=== PATIENT | female | born 1945 | race Two or more races ===

== ENCOUNTER → 2022-09-08 | Outpatient (CLI) | payer BC ==
[2022-09-08 11:38] LABS: Basophils # (auto) 0 10 ^3/uL (0-0.2); Basophils % (auto) 0.5 % (0.0-2.0); Eosinophils # (auto) 0 10 ^3/uL (0-0.8); Eosinophils % (auto) 0.7 % (0.0-7.0); Hematocrit 40.6 % (36.0-46.0); Hemoglobin 13.8 g/dL (12.2-16.2); Lymphocytes # (auto) 1.6 10 ^3/uL (0.4-5.4); Lymphocytes % (auto) 22.9 % (10.0-50.0); Mean Corpuscular Hemoglobin 29.4 pg (28.0-32.0); Mean Corpuscular Volume 86.5 fL (80.0-100.0); Monocytes # (auto) 0.7 10 ^3/uL (0-1.3); Monocytes % (auto) 9.9 % (0.0-12.0); Neutrophils # (auto) 4.5 10 ^3/uL (1.6-8.6); Red Blood Cells 4.69 10^6/uL (4.0-5.20); Red Cell Distribution Width 15.3 % (11.8-14.3); White Blood Cell 6.8 10^3/uL (4.4-10.8)
[2022-09-08 12:40] LABS: Potassium 4.4 mmol/L (3.5-5.1)
[2022-09-08 12:55] LABS: Albumin 3.9 g/dL (3.4-5.0); BUN/Creatinine Ratio 11.3; Bilirubin, Total 0.8 mg/dL (0.2-1.0); Calcium 9.4 mg/dL (8.5-10.1); Total Protein 6.5 g/dL (6.4-8.2)
[2022-09-08 16:22] LABS: Urine Bacteria NONE SEEN /hpf (None Seen); Urine Blood TRACE /uL (Negative); Urine Hyaline Cast MOD /lpf (0 - 2); Urine Mucus FEW (None Seen); Urine Specific Gravity 1.016 (1.001-1.035); Urine WBC 18 /hpf (0 - 5)
== END | disposition home or self-care (01) ==
LOC: LAB 10:51
PROVIDERS: ATTEND Internal Medicine
DX: E11.9 Type 2 diabetes mellitus without complications (principal); I10 Essential (primary) hypertension; E78.5 Hyperlipidemia, unspecified; J44.9 Chronic obstructive pulmonary disease, unspecified
CPT/HCPCS: 36415; 80053; 80061; 81001; 82043; 83036; 85025

== ENCOUNTER → 2022-10-28 | Outpatient (CLI) | payer BC ==
[2022-10-28 11:22] LABS: BUN/Creatinine Ratio 12.9; Calcium 9.1 mg/dL (8.5-10.1); Potassium 3.8 mmol/L (3.5-5.1)
== END | disposition home or self-care (01) ==
LOC: LAB 10:21
PROVIDERS: ATTEND Internal Medicine
DX: Z12.11 Encounter for screening for malignant neoplasm of colon (principal); E11.9 Type 2 diabetes mellitus without complications
CPT/HCPCS: 36415; 80048

== ENCOUNTER → 2022-12-08 | Outpatient (CLI) | payer BC ==
[2022-12-08 12:09] LABS: BUN/Creatinine Ratio 17.7 (10.0-20.0); Calcium 8.9 mg/dL (8.5-10.1); Potassium 4.1 mmol/L (3.5-5.1)
== END | disposition home or self-care (01) ==
LOC: LAB 11:07
PROVIDERS: ATTEND Internal Medicine
DX: R73.03 Prediabetes (principal)
CPT/HCPCS: 36415; 80048

== ENCOUNTER → 2022-12-30 | Outpatient (CLI) | payer BC ==
[2022-12-30 11:09] LABS: Urine Bacteria NONE SEEN /hpf (None Seen); Urine Blood Negative /uL (Negative); Urine Hyaline Cast FEW /lpf (0 - 2); Urine Mucus FEW (None Seen); Urine Specific Gravity 1.025 (1.001-1.035); Urine WBC 4 /hpf (0 - 5)
[2022-12-30 11:26] LABS: Calcium 8.8 mg/dL (8.5-10.1); Potassium 4.1 mmol/L (3.5-5.1)
[2022-12-30 11:29] LABS: BUN/Creatinine Ratio 23.6 (10.0-20.0); Uric Acid 6.1 mg/dL (2.6-6.0)
== END | disposition home or self-care (01) ==
LOC: LAB 10:18
PROVIDERS: ATTEND Internal Medicine
DX: R73.03 Prediabetes (principal); R13.10 Dysphagia, unspecified; E87.1 Hypo-osmolality and hyponatremia
CPT/HCPCS: 36415; 80048; 81001; 84550

== ENCOUNTER → 2023-01-13 | Outpatient (CLI) | payer BC | END | disposition home or self-care (01) | LOC: XYW 10:42 | DX: I08.8 Other rheumatic multiple valve diseases (principal); I48.91 Unspecified atrial fibrillation; I27.20 Pulmonary hypertension, unspecified | CPT/HCPCS: 93306 ==

== ENCOUNTER 2023-02-13 10:52 | Emergency (ER) | payer BC ==
[~2023-02-13] VITALS: Ht 172.7 cm; Wt 76.8 kg
[2023-02-13 13:04] VITALS: BP 110/59
[2023-02-13] MEDS ORDERED: CEPH500C PO (13:13)
== END 2023-02-13 13:15 | disposition home or self-care (01) ==
LOC: ER 10:52
DX: S51.812A Laceration without foreign body of left forearm, initial encounter (principal); J45.909 Unspecified asthma, uncomplicated; E11.9 Type 2 diabetes mellitus without complications; I48.91 Unspecified atrial fibrillation; Z88.2 Allergy status to sulfonamides; W22.8XXA Striking against or struck by other objects, initial encounter; Y93.89 Activity, other specified; Y92.89 Other specified places as the place of occurrence of the external cause; Y99.8 Other external cause status
CPT/HCPCS: 82962

== ENCOUNTER 2023-04-08 07:53 | Inpatient (IN) | payer BC ==
[2023-04-07 11:14] LABS: Basophils # (auto) 0.1 10 ^3/uL (0-0.2); Basophils % (auto) 1.2 % (0.0-2.0); Eosinophils # (auto) 0 10 ^3/uL (0-0.8); Eosinophils % (auto) 0.2 % (0.0-7.0); Hematocrit 40.4 % (36.0-46.0); Hemoglobin 13.2 g/dL (12.2-16.2); Lymphocytes # (auto) 1.2 10 ^3/uL (0.4-5.4); Lymphocytes % (auto) 17.3 % (10.0-50.0); Mean Corpuscular Hemoglobin 28.8 pg (28.0-32.0); Mean Corpuscular Hgb Conc. 32.7 g/dL (32.0-36.0); Mean Corpuscular Volume 88.1 fL (80.0-100.0); Monocytes # (auto) 0.6 10 ^3/uL (0-1.3); Monocytes % (auto) 8.7 % (0.0-12.0); Neutrophils # (auto) 5.2 10 ^3/uL (1.6-8.6); Neutrophils % (auto) 72.6 % (37.0-80.0); Red Blood Cells 4.59 10^6/uL (4.0-5.20); Red Cell Distribution Width 14.3 % (11.8-14.3); White Blood Cell 7.2 10^3/uL (4.4-10.8)
[2023-04-07 11:55] LABS: INR 1.06 (0.9-1.15); Prothrombin Time 11.1 sec (9.3-11.8)
[2023-04-07 12:26] LABS: Potassium 3.8 mmol/L (3.5-5.1)
[2023-04-07 12:42] LABS: BUN/Creatinine Ratio 16.7 (10.0-20.0); Bilirubin, Total 0.5 mg/dL (0.2-1.0); Calcium 9.3 mg/dL (8.5-10.1); Total Protein 7.1 g/dL (6.4-8.2)
[2023-04-08] VITALS (14 sets, daily range): BP systolic 116–158; BP diastolic 55–89; PULSE 64–76; RESP 14–20; TEMP 98–98.5; O2SAT 92–100
[~2023-04-08] VITALS: Ht 172.7 cm; Wt 74.8 kg
[~2023-04-08 07:53] MED LIST: ALBU108A5 IN; APIX5TAB PO; DONE5TAB80 PO; EZET10TA22 PO; FEXO-140 PO; FURO20TA3 PO; HYDR25TA4 PO; HYDR25TA87 PO; MEMA1TAB5 PO; METH-1182 PO; METO1TAB9 PO; NITR0.4S29 SL; PREG-109 PO; RAMI10CA38 PO; SITA100T7 PO; TRAZ-227 PO; VENL150T19 PO
[2023-04-08] MEDS ORDERED: VANCOMYCIN 1GM/250ML 250 ML IV ONE (08:45)
[2023-04-08] MEDS ORDERED: SODIUM CHLORIDE 0.9% 1,000 ML IV ONE (11:30)
[2023-04-08] MEDS ORDERED: traZODone HCL 50 MG TAB PO PRN (12:15)
[2023-04-08] MEDS ORDERED: NITROGLYCERIN 0.4 MG SL TAB SL PRN (12:15)
[2023-04-08] MEDS ORDERED: MORPHINE SULFATE INJ 2 MG/ml SYRG IV PRN (12:15)
[2023-04-08] MEDS ORDERED: hydrALAZINE HCL 25 MG TAB PO PRN (12:15)
[2023-04-08] MEDS ORDERED: FUROSEMIDE 20 MG TAB PO PRN (12:15)
[2023-04-08] MEDS ORDERED: HYDROcodone-ACET 5/325MG TAB PO PRN (12:15)
[2023-04-08] MEDS ORDERED: ALBUTEROL SULF 2.5 MG/0.5ML(0.5%) NEB SOLN NEB PRN (13:15)
[2023-04-08] MEDS ORDERED: LORATADINE 10 MG TAB PO PRN (13:30)
[2023-04-08] MEDS ORDERED: DEXTROSE (50%) 50ML SYRG IV PRN (15:15)
[2023-04-08] MEDS ORDERED: ACETAMINOPHEN 500 MG TAB PO ONE (15:28)
[2023-04-08] MEDS ORDERED: ACETAMINOPHEN 325 MG TAB PO ONE (15:30)
[2023-04-08] MEDS: ACETAMINOPHEN 325 MG TAB PO PRN (15:34)
[2023-04-08] MEDS: InsuLIN REG 1unit/0.01ml Soln (100units/ml) SC SCH ×2 (19:05→21:12)
[2023-04-08] MEDS: ACCU-CHEK COMFORT CURVE STRIP VI SCH ×2 (19:06→21:12)
[2023-04-08] MEDS: DONEPEZIL HYDROCHLORIDE 5 MG TAB PO SCH (19:06)
[2023-04-08] MEDS: PREGABALIN CAPSULE 75 MG CAP PO SCH (21:08)
[2023-04-08] MEDS: MEMANTINE HCL 5 MG TAB PO SCH (21:09)
[2023-04-09 04:58] VITALS: BP 141/78; PULSE 68; RESP 20; TEMP 98.3; O2SAT 93
[2023-04-09 06:24] LABS: Basophils # (auto) 0 10 ^3/uL (0-0.2); Basophils % (auto) 0.4 % (0.0-2.0); Eosinophils # (auto) 0.1 10 ^3/uL (0-0.8); Eosinophils % (auto) 0.7 % (0.0-7.0); Hematocrit 39.8 % (36.0-46.0); Hemoglobin 13.2 g/dL (12.2-16.2); Lymphocytes # (auto) 1.8 10 ^3/uL (0.4-5.4); Lymphocytes % (auto) 20.5 % (10.0-50.0); Mean Corpuscular Hemoglobin 29.1 pg (28.0-32.0); Mean Corpuscular Hgb Conc. 33.1 g/dL (32.0-36.0); Mean Corpuscular Volume 87.7 fL (80.0-100.0); Monocytes # (auto) 0.9 10 ^3/uL (0-1.3); Monocytes % (auto) 10.7 % (0.0-12.0); Neutrophils # (auto) 5.8 10 ^3/uL (1.6-8.6); Neutrophils % (auto) 67.7 % (37.0-80.0); Red Blood Cells 4.54 10^6/uL (4.0-5.20); Red Cell Distribution Width 14.3 % (11.8-14.3); White Blood Cell 8.5 10^3/uL (4.4-10.8)
[2023-04-09 06:28] LABS: BUN/Creatinine Ratio 22.4 (10.0-20.0); Calcium 8.8 mg/dL (8.5-10.1); Potassium 3.3 mmol/L (3.5-5.1)
[2023-04-09] MEDS: ACCU-CHEK COMFORT CURVE STRIP VI SCH ×3 (06:41→17:21)
[2023-04-09] MEDS: InsuLIN REG 1unit/0.01ml Soln (100units/ml) SC SCH ×3 (06:41→17:00)
[2023-04-09 08:00] VITALS: BP 137/74; PULSE 65; PULSE 75; RESP 18; TEMP 97.7; O2SAT 96; O2SAT 97
[2023-04-09 09:00] VITALS: BP 137/74; PULSE 75; RESP 18; TEMP 97.7; O2SAT 96
[2023-04-09] MEDS: PREGABALIN CAPSULE 75 MG CAP PO SCH (09:04)
[2023-04-09] MEDS: MEMANTINE HCL 5 MG TAB PO SCH (09:04)
[2023-04-09] MEDS ORDERED: RAMIPRIL 10 MG CAP PO SCH (10:00)
[2023-04-09] MEDS ORDERED: HCTZ 25 MG TAB PO SCH (10:00)
[2023-04-09] MEDS ORDERED: METOPROLOL SUCCINATE XL 50 MG TAB PO SCH (10:00)
[2023-04-09 13:00] VITALS: BP 122/86; PULSE 74; RESP 18; TEMP 98.4; O2SAT 97
[2023-04-09] MEDS ORDERED: POTASSIUM CHL 20 Meq TABLET PO ONE (16:45)
[2023-04-09] MEDS: DONEPEZIL HYDROCHLORIDE 5 MG TAB PO SCH (17:13)
[2023-04-09] MEDS: ACETAMINOPHEN 325 MG TAB PO PRN (18:32)
[2023-04-09 18:44] VITALS: BP 122/86; PULSE 74; RESP 18; TEMP 98.4; O2SAT 97
== END 2023-04-09 20:00 | disposition home or self-care (01) | DRG 244 ==
LOC: CATH 07:53 → TELE 12:21 → TELE-WESTW 15:47
PROVIDERS: ADMIT Internal Medicine; ATTEND Internal Medicine
PROC: 0JH604Z Insertion of Pacemaker, Single Chamber into Chest Subcutaneous Tissue and Fascia, Open Approach (ICD-10-PCS; principal; 2023-04-08)
PROC: 02HK3JZ Insertion of Pacemaker Lead into Right Ventricle, Percutaneous Approach (ICD-10-PCS; 2023-04-08)
DX: I49.5 Sick sinus syndrome (principal); I10 Essential (primary) hypertension; I48.91 Unspecified atrial fibrillation; I25.10 Atherosclerotic heart disease of native coronary artery without angina pectoris; E11.9 Type 2 diabetes mellitus without complications; E87.6 Hypokalemia; E78.5 Hyperlipidemia, unspecified; Z87.891 Personal history of nicotine dependence; Z88.2 Allergy status to sulfonamides
CPT/HCPCS: 33207; 36415; 71045; 80048; 80053; 82962; 85025; 85610; 85730; 93005; 99152; 99153; G0378; J1815

== ENCOUNTER → 2023-04-16 | Outpatient (CLI) | payer BC ==
[2023-04-16 11:19] LABS: Cholesterol 135 mg/dL (< 200); HDL Cholesterol 58 mg/dL (40-59); LDL Cholesterol 80 mg/dL (< 100); Triglycerides 45 mg/dL (< 150)
[2023-04-16 11:49] LABS: Micro Albumin 7.16 mg/L (0-30.0)
== END | disposition home or self-care (01) ==
LOC: LAB 10:25
PROVIDERS: ATTEND Internal Medicine
DX: R73.03 Prediabetes (principal)
CPT/HCPCS: 36415; 80061; 82043; 82570; 83036

== ENCOUNTER 2023-06-09 17:53 | Emergency (ER) | payer BC ==
[~2023-06-09] VITALS: Ht 172.7 cm; Wt 74.6 kg
[2023-06-09 22:01] LABS: Basophils # (auto) 0.1 10 ^3/uL (0-0.2); Basophils % (auto) 0.8 % (0.0-2.0); Eosinophils # (auto) 0.1 10 ^3/uL (0-0.8); Eosinophils % (auto) 1.4 % (0.0-7.0); Hematocrit 37.7 % (36.0-46.0); Hemoglobin 12.5 g/dL (12.2-16.2); Lymphocytes # (auto) 2.4 10 ^3/uL (0.4-5.4); Lymphocytes % (auto) 31.7 % (10.0-50.0); Mean Corpuscular Hemoglobin 28.9 pg (28.0-32.0); Mean Corpuscular Hgb Conc. 33.2 g/dL (32.0-36.0); Mean Corpuscular Volume 86.9 fL (80.0-100.0); Monocytes # (auto) 0.6 10 ^3/uL (0-1.3); Monocytes % (auto) 8.4 % (0.0-12.0); Neutrophils # (auto) 4.4 10 ^3/uL (1.6-8.6); Neutrophils % (auto) 57.7 % (37.0-80.0); Red Blood Cells 4.35 10^6/uL (4.0-5.20); Red Cell Distribution Width 15.6 % (11.8-14.3); White Blood Cell 7.6 10^3/uL (4.4-10.8)
[2023-06-09 22:19] LABS: Alanine Aminotransferase 31 U/L (7-40); Albumin 3.9 g/dL (3.2-4.8); Alkaline Phosphatase 73 U/L (46-116); Anion Gap 4 (5-15); Aspartate Aminotransferase 25 U/L (13-40); BUN/Creatinine Ratio 12.5 (10.0-20.0); Bilirubin, Total 0.4 mg/dL (0.2-1.0); Blood Urea Nitrogen 8 mg/dL (9-23); Calcium 9.5 mg/dL (8.5-10.1); Carbon Dioxide 32 mmol/L (20-30); Chloride 101 mmol/L (98-107); Glucose 97 mg/dL (74-106); Sodium 137 mmol/L (136-145)
[2023-06-09 22:20] LABS: Total Protein 6.2 g/dL (5.7-8.2)
[2023-06-09 22:50] VITALS: BP 135/73; PULSE 66; RESP 18; O2SAT 97
== END 2023-06-09 22:52 | disposition home or self-care (01) ==
LOC: ER 17:53
DX: M54.16 Radiculopathy, lumbar region (principal); J45.909 Unspecified asthma, uncomplicated; E11.9 Type 2 diabetes mellitus without complications; Z88.2 Allergy status to sulfonamides; Z88.8 Allergy status to other drugs, medicaments and biological substances; Z79.899 Other long term (current) drug therapy
CPT/HCPCS: 36415; 80053; 85025; 93971

== ENCOUNTER → 2023-06-16 | Outpatient (CLI) | payer BC | END | disposition home or self-care (01) | LOC: LAB 09:51 | PROVIDERS: ATTEND Internal Medicine | DX: M79.605 Pain in left leg (principal) | CPT/HCPCS: 36415; 82550 ==

== ENCOUNTER 2023-09-30 08:20 | Day surgery (SDC) | payer BC ==
[2023-09-25 14:38] LABS: Basophils # (auto) 0 10 ^3/uL (0-0.2); Basophils % (auto) 0.5 % (0.0-2.0); Eosinophils # (auto) 0.1 10 ^3/uL (0-0.8); Eosinophils % (auto) 0.7 % (0.0-7.0); Hematocrit 40.1 % (36.0-46.0); Hemoglobin 13.3 g/dL (12.2-16.2); Lymphocytes # (auto) 1.9 10 ^3/uL (0.4-5.4); Lymphocytes % (auto) 25.6 % (10.0-50.0); Mean Corpuscular Hemoglobin 29.5 pg (28.0-32.0); Mean Corpuscular Hgb Conc. 33.1 g/dL (32.0-36.0); Mean Corpuscular Volume 89.2 fL (80.0-100.0); Monocytes # (auto) 0.6 10 ^3/uL (0-1.3); Monocytes % (auto) 7.5 % (0.0-12.0); Neutrophils # (auto) 4.9 10 ^3/uL (1.6-8.6); Neutrophils % (auto) 65.7 % (37.0-80.0); Red Cell Distribution Width 14.6 % (11.8-14.3); White Blood Cell 7.5 10^3/uL (4.4-10.8)
[2023-09-25 15:00] LABS: INR 1.05 (0.9-1.15); Partial Thromboplastin Time 28.8 SEC (24.5-34.5)
[2023-09-25 15:05] LABS: Urine Bacteria FEW /hpf (None Seen); Urine Blood Negative /uL (Negative); Urine Clarity Clear (Clear); Urine Color Yellow (Yellow); Urine Protein, UAD Negative (Negative); Urine Specific Gravity 1.018 (1.001-1.035); Urine Urobilinogen Normal (Negative); Urine WBC 2 /hpf (0 - 5); Urine pH 6.5 (5.0-8.0)
[2023-09-25 15:37] LABS: Alanine Aminotransferase 26 U/L (7-40); Albumin 4.3 g/dL (3.2-4.8); Alkaline Phosphatase 87 U/L (46-116); Anion Gap 4 (5-15); Aspartate Aminotransferase 20 U/L (13-40); BUN/Creatinine Ratio 17.3 (10.0-20.0); Bilirubin, Total 0.5 mg/dL (0.2-1.0); Blood Urea Nitrogen 13 mg/dL (9-23); Calcium 9.7 mg/dL (8.5-10.1); Carbon Dioxide 32 mmol/L (20-30); Chloride 103 mmol/L (98-107); Glucose 163 mg/dL (74-106); Potassium 4.3 mmol/L (3.5-5.1); Sodium 139 mmol/L (136-145)
[2023-09-25 15:38] LABS: Total Protein 6.6 g/dL (5.7-8.2)
[~2023-09-30] VITALS: Ht 172.7 cm; Wt 73.5 kg
[~2023-09-30 08:20] MED LIST changes: +AMLO1TAB23 PO; +DONE1TAB88 PO; -DONE5TAB80 PO; -FEXO-140 PO; -FURO20TA3 PO; -HYDR25TA4 PO; -HYDR25TA87 PO; +RAM10T PO; -RAMI10CA38 PO
[2023-09-30] MEDS ORDERED: GLYCOPYRROLATE 0.2 MG/ML 1ML VIAL ONE (09:33)
[2023-09-30] MEDS ORDERED: PROPOFOL 10 MG/ML 20 ML IV ONE (09:33)
[2023-09-30] MEDS ORDERED: ONDANSETRON HCL 4 MG/2 ML VIAL ONE (09:33)
[2023-09-30] MEDS ORDERED: KETAMINE 50mg/ML 1ml syringe ONE (09:33)
[2023-09-30] MEDS ORDERED: MIDAZOLAM HCL 2MG/2ML 2ml VIAL (1mg/ml) ONE (09:33)
[2023-09-30 10:10] VITALS: PULSE 82; RESP 10; TEMP 98.2; O2SAT 98
[2023-09-30 10:45] VITALS: BP 109/58; PULSE 71; RESP 15; O2SAT 95
== END 2023-09-30 11:00 | disposition home or self-care (01) ==
LOC: GI 08:20
PROVIDERS: ATTEND Internal Medicine Gastroenterology
DX: R13.10 Dysphagia, unspecified (principal); K44.9 Diaphragmatic hernia without obstruction or gangrene; K20.90 Esophagitis, unspecified without bleeding; K29.50 Unspecified chronic gastritis without bleeding; I25.10 Atherosclerotic heart disease of native coronary artery without angina pectoris; Z95.0 Presence of cardiac pacemaker
CPT/HCPCS: 36415; 43239; 80053; 81001; 82962; 85025; 85610; 85730; J2250; J2405; J2704; J7030

== ENCOUNTER → 2023-10-28 | Outpatient (CLI) | payer BC ==
[2023-10-29 08:06] LABS: RPR Non Reactive (Non Reactive)
== END | disposition home or self-care (01) ==
LOC: LAB 10:11
PROVIDERS: ATTEND Internal Medicine
DX: R73.03 Prediabetes (principal); G31.84 Mild cognitive impairment of uncertain or unknown etiology
CPT/HCPCS: 36415; 82306; 84443; 84550; 86592

== ENCOUNTER → 2023-12-31 | Outpatient (CLI) | payer BC ==
[~2023-12-31] MED LIST changes: -PREG-109 PO; +PREG75CA90 PO; -VENL150T19 PO; +VENL150T34 PO
[2024-01-01 16:46] LABS: Creatinine, Urine 86.33 mg/dL (30.0-125.0)
== END | disposition home or self-care (01) ==
LOC: LAB 08:45
PROVIDERS: ATTEND Internal Medicine
DX: R73.03 Prediabetes (principal)
CPT/HCPCS: 36415; 82043; 82570; 83036

== ENCOUNTER → 2024-01-04 | Outpatient (CLI) | payer BC | END | disposition home or self-care (01) | LOC: XYW 12:39 | PROVIDERS: ATTEND Student in an Organized Health Care Education/Training Program | DX: I08.1 Rheumatic disorders of both mitral and tricuspid valves (principal); I50.9 Heart failure, unspecified; Z95.0 Presence of cardiac pacemaker | CPT/HCPCS: 93306 ==

== ENCOUNTER → 2024-02-02 | Outpatient (CLI) | payer BC ==
[2024-02-02 11:56] LABS: Triglycerides 54 mg/dL (< 150)
[2024-02-02 11:57] LABS: LDL Cholesterol 118 mg/dL (< 100)
[2024-02-02 11:58] LABS: Cholesterol 182 mg/dL (< 200); HDL Cholesterol 57 mg/dL (40-59)
== END | disposition home or self-care (01) ==
LOC: LAB 11:07
PROVIDERS: ATTEND Internal Medicine
DX: E78.5 Hyperlipidemia, unspecified (principal)
CPT/HCPCS: 36415; 80061

== ENCOUNTER → 2024-05-26 | Outpatient (CLI) | payer BC ==
[2024-05-26 12:43] LABS: Basophils # (auto) 0 10 ^3/uL (0-0.2); Basophils % (auto) 0.6 % (0.0-2.0); Eosinophils # (auto) 0.1 10 ^3/uL (0-0.8); Eosinophils % (auto) 0.8 % (0.0-7.0); Hematocrit 39.6 % (36.0-46.0); Hemoglobin 13.3 g/dL (12.2-16.2); Lymphocytes # (auto) 1.5 10 ^3/uL (0.4-5.4); Lymphocytes % (auto) 19.9 % (10.0-50.0); Mean Corpuscular Hemoglobin 29.4 pg (28.0-32.0); Mean Corpuscular Hgb Conc. 33.7 g/dL (32.0-36.0); Mean Corpuscular Volume 87.4 fL (80.0-100.0); Monocytes # (auto) 0.6 10 ^3/uL (0-1.3); Monocytes % (auto) 8.5 % (0.0-12.0); Neutrophils # (auto) 5.2 10 ^3/uL (1.6-8.6); Neutrophils % (auto) 70.2 % (37.0-80.0); Platelet Count (auto) 190 10^3/uL (140-450); Red Blood Cells 4.53 10^6/uL (4.0-5.20); Red Cell Distribution Width 15.7 % (11.8-14.3); White Blood Cell 7.4 10^3/uL (4.4-10.8)
[2024-05-26 13:47] LABS: Alanine Aminotransferase 12 U/L (7-40); Albumin 4.5 g/dL (3.2-4.8); Alkaline Phosphatase 63 U/L (46-116); Anion Gap 7 (5-15); Aspartate Aminotransferase 13 U/L (13-40); BUN/Creatinine Ratio 20.3 (10.0-20.0); Blood Urea Nitrogen 13 mg/dL (9-23); Calcium 10.2 mg/dL (8.7-10.4); Carbon Dioxide 29 mmol/L (20-31); Chloride 106 mmol/L (98-107); Glucose 120 mg/dL (74-106); LDL Cholesterol 89 mg/dL (< 100); Sodium 142 mmol/L (136-145); Triglycerides 66 mg/dL (< 150)
[2024-05-26 13:48] LABS: Bilirubin, Total 0.8 mg/dL (0.2-1.0); Cholesterol 154 mg/dL (< 200); HDL Cholesterol 60 mg/dL (40-59); Total Protein 6.9 g/dL (5.7-8.2)
== END | disposition home or self-care (01) ==
LOC: LAB 12:19
PROVIDERS: ATTEND Internal Medicine
DX: M54.50 Low back pain, unspecified (principal); R73.03 Prediabetes
CPT/HCPCS: 36415; 80053; 80061; 83036; 85025

== ENCOUNTER → 2024-08-08 | Outpatient (CLI) | payer BC ==
[2024-08-08 12:21] LABS: Basophils # (auto) 0 10 ^3/uL (0-0.2); Basophils % (auto) 0.5 % (0.0-2.0); Eosinophils # (auto) 0.1 10 ^3/uL (0-0.8); Eosinophils % (auto) 1.7 % (0.0-7.0); Hematocrit 39.6 % (36.0-46.0); Hemoglobin 13.1 g/dL (12.2-16.2); Lymphocytes # (auto) 1.7 10 ^3/uL (0.4-5.4); Mean Corpuscular Volume 87.9 fL (80.0-100.0); Monocytes # (auto) 0.7 10 ^3/uL (0-1.3); Monocytes % (auto) 10.3 % (0.0-12.0); Neutrophils # (auto) 4.3 10 ^3/uL (1.6-8.6); Neutrophils % (auto) 62.5 % (37.0-80.0); Platelet Count (auto) 176 10^3/uL (140-450); Red Blood Cells 4.51 10^6/uL (4.0-5.20); Red Cell Distribution Width 15.1 % (11.8-14.3); White Blood Cell 6.8 10^3/uL (4.4-10.8)
[2024-08-08 13:21] LABS: Alanine Aminotransferase 12 U/L (7-40); Alkaline Phosphatase 77 U/L (46-116); Anion Gap 4 (5-15); Aspartate Aminotransferase 15 U/L (13-40); BUN/Creatinine Ratio 26.3 (10.0-20.0); Blood Urea Nitrogen 20 mg/dL (9-23); Calcium 10.1 mg/dL (8.7-10.4); Carbon Dioxide 31 mmol/L (20-31); Chloride 105 mmol/L (98-107); Glucose 101 mg/dL (74-106); Potassium 4.3 mmol/L (3.5-5.1); Sodium 140 mmol/L (136-145)
[2024-08-08 13:22] LABS: Albumin 4.3 g/dL (3.2-4.8); Bilirubin, Total 0.3 mg/dL (0.2-1.0); Total Protein 6.8 g/dL (5.7-8.2)
== END | disposition home or self-care (01) ==
LOC: LAB 11:58
DX: G30.1 Alzheimer's disease with late onset (principal); F02.818 Dementia in other diseases classified elsewhere, unspecified severity, with other behavioral disturbance
CPT/HCPCS: 36415; 80053; 82607; 84425; 85025

== ENCOUNTER → 2024-08-29 | Outpatient (CLI) | payer BC ==
[~2024-08-29] MED LIST changes: +BACDST PO
== END | disposition home or self-care (01) ==
LOC: LAB 05:44
PROVIDERS: ATTEND Nurse Practitioner
DX: N39.0 Urinary tract infection, site not specified (principal)
CPT/HCPCS: 87086

== ENCOUNTER 2024-08-30 04:35 | Emergency (ER) | payer BC ==
[~2024-08-30] VITALS: Ht 172.7 cm; Wt 78.4 kg
[~2024-08-30 04:35] MED LIST changes: -BACDST PO
--- NOTE | 2024-08-30 04:58 | ED.PDOC ---
General HPI Comments 78-year-old female presents with a chief complaint of urinary retention, hematuria, frequency, urgency, and flank pain. Patient states that her pain is localized to her right flank, non-radiating, and rates her pain a 3/10. Patient mentions that the hematuria has been going on for about x 2 weeks and had seen her PMD who did a urine culture, but has not gotten the results. Patient is unsure if she has a current UTI. No other symptoms or modifying factors present at this time. Chief Complaint: Urinary Time Seen by MD: 04:51 Primary Care Provider: CHIQUITA Reviewed notes: Medications, Allergies Allergies: Coded Allergies: Statins (Verified Allergy, Mild, itching, 04/07/23) Sulfa Antibiotics (Verified Allergy, Unknown, 02/13/23) Trimethoprim (Unverified Allergy, Unknown, 04/09/23) Home Meds Active Scripts Sulfamethoxazole W/Trimethopri (Bactrim Ds Tablet) 1 Tab Tb, 1 TAB PO BID for 7 Days, #14 TAB Prov:RUPERT LAMAS MD 08/30/24 Reported Medications Amlodipine Besylate (Amlodipine Besylate) 10 Mg Tab, 10 MG PO DAILY, TAB 09/25/23 Ramipril (Altace) 10 Mg Cp, 10 MG PO BID, CAP 09/25/23 Donepezil Hydrochloride (DONEPEZIL HCL) 10 Mg Tab, 10 MG PO QPM, TAB 09/25/23 Venlafaxine Hcl (Venlafaxine Hcl Er) 150 Mg Tab, 1 TAB PO DAILY for depression 04/07/23 Trazodone Hcl (Trazodone Hcl) 50 Mg Tab, 50 MG PO HSPRN PRN for SLEEP, MG 04/07/23 Pregabalin (Pregabalin) 75 Mg Cap, 75 MG PO BID for NEUROPATHY, CAP 04/07/23 Nitroglycerin (Nitrostat) 0.4 Mg Sub, 0.4 MG SL PRN for CHEST PAIN, INJ 04/07/23 Metoprolol Succinate (Metoprolol Succinate Er) 100 Mg Tab, 100 MG PO DAILY for HEART/HTN, TAB 04/07/23 Methocarbamol (Methocarbamol) 750 Mg Tab, 750 MG PO BID PRN for BACK PAIN 04/07/23 Memantine Hydrochloride (Memantine HCl) 10 Mg Tab, 10 MG PO BID for MEMORY, TAB 04/07/23 Sitagliptin Phosphate (Januvia) 100 Mg Tab, 1 TAB PO DAILY for DM 04/07/23 Ezetimibe (Zetia) 10 Mg Tab, 1 TAB PO DAILY for CHOLESTEROL 04/07/23 Apixaban Base (ELIQUIS) 5 Mg Tab, 5 MG PO BID for BLOOD THINNER (A-FIB), TAB 04/07/23 Albuterol Sulfate (Albuterol Sulfate Hfa) 108 Mcg/Act Aer, 90 MCG IN Q6HP PRN for SHORTNESS OF BREATH, AER 04/07/23 Information Source: Patient Mode of Arrival: Ambulatory Severity: Moderate Inability to void: Moderate Timing: Days Duration: Since onset Has not urinated for: Minutes Prehospital treatment: None Onset: Spontaneous Symptoms: Frequency, Urgency, Hematuria, Inability to void History of: UTI Location: (R) Flank associated signs and symptoms: Frequency, Urgency, Hematuria, Inability to Void Past Medical History PAST MEDICAL HISTORY: AFIB, Asthma, Dementia, DM Surgical History: Denies all surgeries 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 Family History Family History: Reviewed,noncontributory to illness Social History Smoker: Non-Smoker Alcohol: Denies ETOH Use Drugs: Denies Drug Use Lives In: Home Constitutional: denies: chills, diaphoresis, fatigue, fever, malaise, sweats, weakness, others EENTM: denies: blurred vision, double vision, ear bleeding, ear discharge, ear drainage, ear pain, ear ringing, eye pain, eye redness, hearing loss, mouth pain, mouth swelling, nasal discharge, nose bleeding, nose congestion, nose pain, photophobia, tearing, throat pain, throat swelling, voice changes, others Respiratory: denies: cough, hemoptysis, orthopnea, SOB at rest, shortness of breath, SOB with excertion, stridor, wheezing, others Cardiovascular: denies: chest pain, dizzy spells, diaphoresis, Dyspnea on exertion, edema, irregular heart beat, left arm pain, lightheadedness, palpitations, PND, syncope, others Gastrointestinal: denies: abdomen distended, abdominal pain, blood streaked bowels, constipated, diarrhea, dysphagia, difficulty swallowing, hematemesis, melena, nausea, poor appetite, poor fluid intake, rectal bleeding, rectal pain, vomiting, others Genitourinary: reports: flank pain, frequency, hematuria, urgency, others (RETENTION); denies: abnormal vagina bleeding, burning, dyspareunia, dysuria, incontinence, pain, , vagina discharge Neurological: denies: dizziness, fainting, headache, left sided numbness, left sided weakness, numbness, paresthesia, pre-existing deficit, right sided numbness, right sided weakness, seizure, speech problems, tingling, tremors, weakness, others Musculoskeletal: denies: back pain, gout, joint pain, joint swelling, muscle pain, muscle stiffness, neck pain, others Integumetry: denies: bruises, change in color, change in hair/nails, dryness, laceration, lesions, lumps, rash, wounds, others Allergic/Immunocompromised: denies: Difficulty Healing, Frequent Infections, Hives, Itching, others Hematologic/Lymphatic: denies: anemia, blood clots, easy bleeding, easy bruising, swollen glands, others Endocrine: denies: excessive hunger, excessive sweating, excessive thirst, excessive urination, flushing, intolerance to cold, intolerance to heat, unexplained weight gain, unexplained weight loss, others Psychiatric: denies: anxiety, bipolar disorder, depression, hopeless, panic disorder, schizophrenia, sleepless, suicidal, others All Other Systems: Reviewed and Negative Physical Exam General Appearance: No Apparent Distress, Normal HEENT: Normal ENT Inspection, Pharynx Normal, TMs Normal Neck: Full Range of Motion, Non-Tender, Normal, Normal Inspection Respiratory: Chest Non-Tender, Lungs Clear, No Accessory Muscle Use, No Respiratory Distress, Normal Breath Sounds Cardiovascular: No Edema, No JVD, No Murmur, No Gallop, Normal Peripheral Pulses, Regular Rate/Rhythm Breast Exam: Deferred Gastrointestinal: No Organomegaly, Non Tender, No Pulsatile Mass, Normal Bowel Sounds, Soft Genitalia: Deferred Pelvic: Deferred Rectal: Deferred Extremities: No calf tenderness, Normal capillary refill, Normal inspection, Normal range of motion, Non-tender, No pedal edema Musculoskeletal : Apperance: Normal Neurologic: Alert, 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 Was a procedure done?: No Differential Diagnosis Kidney stone (Female): Pyelonephritis, Renal failure, Urolithiasis Kidney stone (Male): Pyelonephritis, Renal failure, Urinary obstruction, Urolithiasis, Urinary tract infection Penile/Scrotal: UTI Urinary Problem (Male): Urinary Retention Urinary Problem (Female): Other X-Ray, Labs, Meds, VS Vital Signs Date Time Temp Pulse Resp B/P (MAP) Pulse Ox O2 Delivery O2 Flow Rate FiO2 08/30/24 06:55 73 16 99 Room Air* 0 21 08/30/24 06:55 98.1 73 16 119/58 (78) 99 98.1 08/30/24 04:45 97.7 74 16 124/60 (81) 97 Lab Test 08/30/24 05:34 08/30/24 04:55 Range/Units White Blood Count 8.2 4.4-10.8 10^3/uL Red Blood Count 4.51 4.0-5.20 10^6/uL Hemoglobin 13.0 12.2-16.2 g/dL Hematocrit 39.4 36.0-46.0 % Mean Corpuscular Volume 87.3 80.0-100.0 fL Mean Corpuscular Hemoglobin 28.7 28.0-32.0 pg Mean Corpuscular Hemoglobin Concent 32.9 32.0-36.0 g/dL Red Cell Distribution Width 15.0 H 11.8-14.3 % Platelet Count 201 140-450 10^3/uL Mean Platelet Volume 8.8 6.9-10.8 fL Neutrophils (%) (Auto) 64.3 37.0-80.0 % Lymphocytes (%) (Auto) 23.4 10.0-50.0 % Monocytes (%) (Auto) 9.9 0.0-12.0 % Eosinophils (%) (Auto) 2.1 0.0-7.0 % Basophils (%) (Auto) 0.3 0.0-2.0 % Neutrophils # (Auto) 5.3 1.6-8.6 10 ^3/uL Lymphocytes # (Auto) 1.9 0.4-5.4 10 ^3/uL Monocytes # (Auto) 0.8 0-1.3 10 ^3/uL Eosinophils # (Auto) 0.2 0-0.8 10 ^3/uL Basophils # (Auto) 0 0-0.2 10 ^3/uL Nucleated Red Blood Cells 0.0 % Sodium Level 141 136-145 mmol/L Potassium Level 3.4 L 3.5-5.1 mmol/L Chloride Level 106 98-107 mmol/L Carbon Dioxide Level 30 20-31 mmol/L Anion Gap 5 5-15 Blood Urea Nitrogen 14 9-23 mg/dL Creatinine 0.74 0.550-1.02 mg/dL Glomerular Filtration Rate Calc 82 >90 mL/min BUN/Creatinine Ratio 18.9 10.0-20.0 Serum Glucose 109 H 74-106 mg/dL Calcium Level 10.1 8.7-10.4 mg/dL Total Bilirubin 0.4 0.2-1.0 mg/dL Aspartate Amino Transferase (AST) 12 L 13-40 U/L Alanine Aminotransferase (ALT) 11 7-40 U/L Alkaline Phosphatase 77 46-116 U/L Total Protein 6.5 5.7-8.2 g/dL Albumin 4.3 3.2-4.8 g/dL Urine Color Light-yellow Yellow Urine Clarity Clear Clear Urine pH 5.0 5.0-9.0 Urine Specific Hale 1.009 1.001-1.035 Urine Protein Negative Negative Urine Ketones Negative Negative Urine Blood Trace H Negative /uL Urine Nitrite Negative Negative Urine Bilirubin Negative Negative Urine Urobilinogen Normal Negative mg/dL Urine Leukocyte Esterase 1+ Negative /uL Urine RBC 1 0 - 4 /hpf Urine WBC 2 0 - 5 /hpf Urine Squamous Epithelial Cells Few <5 /hpf Urine Bacteria Few H None Seen /hpf Urine Glucose Normal Normal mg/dL Time of 1ST Reevaluation: 05:21 Reevaluation 1ST: Unchanged Patient Education/Counseling: Diagnosis, Treatment, Prognosis Family Education/Counseling: No Family Present Departure 1 Departure Time of Disposition: 06:00 Impression: Primary Impression: UTI (urinary tract infection) Additional Impression: Solitary pulmonary nodule on lung CT Disposition: HOME / SELF CARE / HOMELESS Condition: Stable e-Prescriptions Sulfamethoxazole W/Trimethopri (Bactrim Ds Tablet) 1 Tab Tb 1 TAB PO BID for 7 Days, #14 TAB Prov: RUPERT LAMAS MD 08/30/24 Discharged With: Self Critical Care Note Critical Care Time?: No Stability Stability form required: No I personally scribed for RUPERT LAMAS MD ([email or web address]) on 08/30/24 at 04:58. Electronically submitted by Terrell Gao ([email or web address]). RUPERT LAMAS MD Aug 30, 2024 04:58
--- NOTE | 2024-08-30 05:35 | DVH ---
Exam: CT CT AB PEL WO CON-NO ORAL OR IV History: right flank pain, hematuria Comparison Study: None Technique: Multidetector spiral CT of the abdomen was performed from lung bases to pubic symphysis. Imaging was performed without IV contrast. Axial, coronal and sagittal multiplanar reformats were ob tained from the axial data set by the technologist. Radiation Dose : 1. Abdomen/Pelvis: CTDIvol 14.5 mGy, DLP 786.72 mGy*cm. Findings: Evaluation of solid organs is limited due to lack of intravenous contrast use. Lung Bases: Tree-in-bud airspace opacities in the right lung base are likely infectious / inflammator y. Cardiomegaly. Liver: The liver is normal in size. No focal lesions. Gallbladder and Biliary Tree: Unremarkable Spleen: Unremarkable Pancreas: The pancreas is grossly normal in appearance. Adrenal Glands: Unremarkable Kidneys: Kidneys are grossly normal without calculi or hydronephrosis. Bladder: Grossly unremarkable for degree of distention. Bowel: The stomach is grossly normal in appearance. Diverticulosis. Normal appendix is visualized in the right lower quadrant without findings of appendicitis. Ascites: Absent Lymphadenopathy: No mesenteric, retroperitoneal or periportal lymphadenopathy. Abdominal Wall and Mesentery: Unremarkable. Vasculature: The visualized abdominal aorta is normal in size and caliber. There is extensive athero sclerotic calcification of the aorta and its branches. Evaluation of abdominal and pelvic vessels is limited due to lack of intravenous contrast. Pelvic Organs: Unremarkable Musculoskeletal: No aggressive focal bony lesions, acute fractures or dislocation. Degenerative casper es of the spine and bilateral hips. IMPRESSION: No acute abdominal or pelvic findings. Tree-in-bud nodularity in the right lung base is likely infectious or inflammatory. Radiation optimization: All CT scans at this facility use at least one of these dose optimization solo hniques: automated exposure control mA and/or kV adjustment per patient size (includes targeted exam s where dose is matched to clinical indication) or iterative reconstruction.
[2024-08-30] MEDS ORDERED: BACDST PO (05:53)
[2024-08-30 06:07] LABS: Basophils # (auto) 0 10 ^3/uL (0-0.2); Basophils % (auto) 0.3 % (0.0-2.0); Eosinophils # (auto) 0.2 10 ^3/uL (0-0.8); Eosinophils % (auto) 2.1 % (0.0-7.0); Hematocrit 39.4 % (36.0-46.0); Lymphocytes # (auto) 1.9 10 ^3/uL (0.4-5.4); Lymphocytes % (auto) 23.4 % (10.0-50.0); Mean Corpuscular Hemoglobin 28.7 pg (28.0-32.0); Mean Corpuscular Hgb Conc. 32.9 g/dL (32.0-36.0); Mean Corpuscular Volume 87.3 fL (80.0-100.0); Monocytes # (auto) 0.8 10 ^3/uL (0-1.3); Monocytes % (auto) 9.9 % (0.0-12.0); Neutrophils # (auto) 5.3 10 ^3/uL (1.6-8.6); Neutrophils % (auto) 64.3 % (37.0-80.0); Platelet Count (auto) 201 10^3/uL (140-450); Red Blood Cells 4.51 10^6/uL (4.0-5.20); White Blood Cell 8.2 10^3/uL (4.4-10.8)
[2024-08-30 06:24] LABS: Alanine Aminotransferase 11 U/L (7-40); Alkaline Phosphatase 77 U/L (46-116); Anion Gap 5 (5-15); BUN/Creatinine Ratio 18.9 (10.0-20.0); Blood Urea Nitrogen 14 mg/dL (9-23); Calcium 10.1 mg/dL (8.7-10.4); Carbon Dioxide 30 mmol/L (20-31); Chloride 106 mmol/L (98-107); Sodium 141 mmol/L (136-145)
[2024-08-30 06:25] LABS: Albumin 4.3 g/dL (3.2-4.8); Bilirubin, Total 0.4 mg/dL (0.2-1.0); Total Protein 6.5 g/dL (5.7-8.2)
[2024-08-30 06:39] LABS: Aspartate Aminotransferase 12 U/L (13-40); Glucose 109 mg/dL (74-106); Potassium 3.4 mmol/L (3.5-5.1)
[2024-08-30 06:55] VITALS: BP 119/58; PULSE 73; RESP 16; TEMP 98.1; O2SAT 99
[2024-08-30 08:26] LABS: Urine Bacteria FEW /hpf (None Seen); Urine Blood TRACE /uL (Negative); Urine Clarity Clear (Clear); Urine Color Light-Yellow (Yellow); Urine Protein, UAD Negative (Negative); Urine Specific Gravity 1.009 (1.001-1.035); Urine Squamous Epithelial Cell FEW /hpf (<5); Urine Urobilinogen Normal (Negative); Urine WBC 2 /hpf (0 - 5)
== END 2024-08-30 06:55 | disposition home or self-care (01) ==
LOC: ER 04:35
DX: N39.0 Urinary tract infection, site not specified (principal); R91.1 Solitary pulmonary nodule; E11.9 Type 2 diabetes mellitus without complications; F03.90 Unspecified dementia, unspecified severity, without behavioral disturbance, psychotic disturbance, mood disturbance, and anxiety; I48.91 Unspecified atrial fibrillation; J45.909 Unspecified asthma, uncomplicated; Z79.84 Long term (current) use of oral hypoglycemic drugs; Z79.899 Other long term (current) drug therapy; Z87.440 Personal history of urinary (tract) infections; Z88.1 Allergy status to other antibiotic agents; Z88.2 Allergy status to sulfonamides; Z88.8 Allergy status to other drugs, medicaments and biological substances
CPT/HCPCS: 36415; 74176; 80053; 81001; 85025

== ENCOUNTER 2024-09-02 14:20 | Emergency (ER) | payer BC ==
[~2024-09-02] VITALS: Ht 172.7 cm; Wt 79.0 kg
[~2024-09-02 14:20] MED LIST changes: +BACDST PO
--- NOTE | 2024-09-02 14:57 | DVH ---
CLINICAL INFORMATION: 78 years old, Female; HEADACHE. TECHNIQUE: Axial imaging was obtained through the brain without contrast. Coronal and sagittal refor matted images were obtained, reviewed, and stored. Images were reviewed in brain and bone windows. A ll CT scans at this medical facility are performed using dose modulation techniques as appropriate to a performed exam including the following: Automated exposure control was utilized; adjustment of the MA and/or KV according to patient size; and use of iterative reconstruction technique. CTDIvol = 56.89 mGy DLP = 797.23 mGy-cm COMPARISON: None available at the time of dictation. FINDINGS: There is no acute intracranial hemorrhage or extraaxial fluid collection. No mass effect o r midline shift. Scattered areas of hypoattenuation are seen in the periventricular and subcortical w celestina matter, which are nonspecific but most likely sequelae of small vessel ischemic disease. Partial ly empty sella incidentally noted. The ventricles and sulci are within normal limits in size for age. Basal cisterns are patent. The calvarium is unremarkable. Paranasal sinuses and mastoid air cell s are clear. IMPRESSION: 1. No CT evidence of acute intracranial abnormality. 2. Nonacute findings as described above.
[2024-09-02 15:34] LABS: Basophils # (auto) 0 10 ^3/uL (0-0.2); Basophils % (auto) 0.4 % (0.0-2.0); Eosinophils # (auto) 0.1 10 ^3/uL (0-0.8); Eosinophils % (auto) 1.8 % (0.0-7.0); Hemoglobin 12.2 g/dL (12.2-16.2); Lymphocytes # (auto) 1.6 10 ^3/uL (0.4-5.4); Lymphocytes % (auto) 21.2 % (10.0-50.0); Mean Corpuscular Hemoglobin 28.9 pg (28.0-32.0); Mean Corpuscular Hgb Conc. 33.1 g/dL (32.0-36.0); Mean Corpuscular Volume 87.3 fL (80.0-100.0); Monocytes # (auto) 0.6 10 ^3/uL (0-1.3); Monocytes % (auto) 7.9 % (0.0-12.0); Neutrophils # (auto) 5.3 10 ^3/uL (1.6-8.6); Neutrophils % (auto) 68.7 % (37.0-80.0); Platelet Count (auto) 199 10^3/uL (140-450); Red Blood Cells 4.24 10^6/uL (4.0-5.20); Red Cell Distribution Width 14.9 % (11.8-14.3); White Blood Cell 7.8 10^3/uL (4.4-10.8)
[2024-09-02 15:46] LABS: Alanine Aminotransferase 12 U/L (7-40); Albumin 4.1 g/dL (3.2-4.8); Alkaline Phosphatase 78 U/L (46-116); Anion Gap 4 (5-15); Aspartate Aminotransferase 14 U/L (13-40); BUN/Creatinine Ratio 12.8 (10.0-20.0); Blood Urea Nitrogen 11 mg/dL (9-23); Calcium 10.2 mg/dL (8.7-10.4); Carbon Dioxide 31 mmol/L (20-31); Chloride 104 mmol/L (98-107); Sodium 139 mmol/L (136-145); Total Protein 6.1 g/dL (5.7-8.2)
[2024-09-02 15:47] LABS: Bilirubin, Total 0.2 mg/dL (0.2-1.0); Glucose 138 mg/dL (74-106)
--- NOTE | 2024-09-02 16:55 | ED.PDOC ---
HPI (NEURO) HPI Comments 78 y.o female with PMHX of AFIB and DM, presents to the ED for a chief complaint of involuntary tremors x 1 day associated with right sided headache today. Patient reports difficulty ambulating to her couch, which is unusual for her, states when she finally sat down her tremors went away but developed the right sided headache. Patient denies any focal weaknesses, numbness, slurred speech, vision changes, confusion, nausea, vomiting, chest pain. Patient ambulates with walker, is ambulating around the ED with it and has no difficulty at the moment. 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 Family History Family History: Reviewed,noncontributory to illness Social History Smoker: Non-Smoker Alcohol: Denies ETOH Use Drugs: Denies Drug Use Lives In: Home Constitutional: denies: chills, diaphoresis, fatigue, fever, malaise, sweats, weakness, others EENTM: denies: blurred vision, double vision, ear bleeding, ear discharge, ear drainage, ear pain, ear ringing, eye pain, eye redness, hearing loss, mouth pain, mouth swelling, nasal discharge, nose bleeding, nose congestion, nose pain, photophobia, tearing, throat pain, throat swelling, voice changes, others Respiratory: denies: cough, hemoptysis, orthopnea, SOB at rest, shortness of breath, SOB with excertion, stridor, wheezing, others Cardiovascular: denies: chest pain, dizzy spells, diaphoresis, Dyspnea on exertion, edema, irregular heart beat, left arm pain, lightheadedness, palpitations, PND, syncope, others Gastrointestinal: denies: abdomen distended, abdominal pain, blood streaked bowels, constipated, diarrhea, dysphagia, difficulty swallowing, hematemesis, melena, nausea, poor appetite, poor fluid intake, rectal bleeding, rectal pain, vomiting, others Genitourinary: denies: abnormal vagina bleeding, burning, dyspareunia, dysuria, flank pain, frequency, hematuria, incontinence, pain, , vagina discharge, urgency, others Neurological: reports: headache, tremors; denies: dizziness, fainting, left sided numbness, left sided weakness, numbness, paresthesia, pre-existing deficit, right sided numbness, right sided weakness, seizure, speech problems, tingling, weakness, others Musculoskeletal: denies: back pain, gout, joint pain, joint swelling, muscle pain, muscle stiffness, neck pain, others Integumetry: denies: bruises, change in color, change in hair/nails, dryness, laceration, lesions, lumps, rash, wounds, others Allergic/Immunocompromised: denies: Difficulty Healing, Frequent Infections, Hives, Itching, others Hematologic/Lymphatic: denies: anemia, blood clots, easy bleeding, easy bruising, swollen glands, others Endocrine: denies: excessive hunger, excessive sweating, excessive thirst, excessive urination, flushing, intolerance to cold, intolerance to heat, unexplained weight gain, unexplained weight loss, others Psychiatric: denies: anxiety, bipolar disorder, depression, hopeless, panic disorder, schizophrenia, sleepless, suicidal, others All Other Systems: Reviewed and Negative Physical Exam Exam Comments Patient ambulates with a walker due to degenerative disc disease of the lumbar spine. General Appearance: Moderate Distress ([id number] distress due to anxiety related to her movement disorder event.), Normal HEENT: Head (Unremarkable cranial evaluation. No signs of trauma. No skull depressions or deformities.), Normal ENT Inspection, Pharynx Normal, TMs Normal Neck: Full Range of Motion, Non-Tender, Normal, Normal Inspection Respiratory: Chest Non-Tender, Lungs Clear, No Accessory Muscle Use, No Respiratory Distress, Normal Breath Sounds Cardiovascular: No Edema, No JVD, No Murmur, No Gallop, Normal Peripheral Pulses, Regular Rate/Rhythm Breast Exam: Deferred Gastrointestinal: No Organomegaly, Non Tender, No Pulsatile Mass, Normal Bowel Sounds, Soft Genitalia: Deferred Pelvic: Deferred Rectal: Deferred Extremities: No calf tenderness, Normal capillary refill, No pedal edema Neurologic: Alert, No Motor Deficits, Normal Affect, Normal Mood, No Sensory Deficits Cerebellar Function: Normal Reflexes: Normal Skin: Dry, Normal Color, Warm Lymphatic: No Adenopathy Was a procedure done? Was a procedure done?: No Differential Diagnosis (SZ) CVA: CVA, Delirium Tremens, Electrolyte Imbalance, TIA, Other (Sepsis, autoimmune concern) X-Ray, Labs, Meds, VS Vital Signs Date Time Temp Pulse Resp B/P (MAP) Pulse Ox O2 Delivery O2 Flow Rate FiO2 09/02/24 15:11 98.1 65 20 121/67 (85) 98 Lab Test 09/02/24 15:00 Range/Units White Blood Count 7.8 4.4-10.8 10^3/uL Red Blood Count 4.24 4.0-5.20 10^6/uL Hemoglobin 12.2 12.2-16.2 g/dL Hematocrit 37.0 36.0-46.0 % Mean Corpuscular Volume 87.3 80.0-100.0 fL Mean Corpuscular Hemoglobin 28.9 28.0-32.0 pg Mean Corpuscular Hemoglobin Concent 33.1 32.0-36.0 g/dL Red Cell Distribution Width 14.9 H 11.8-14.3 % Platelet Count 199 140-450 10^3/uL Mean Platelet Volume 8.9 6.9-10.8 fL Neutrophils (%) (Auto) 68.7 37.0-80.0 % Lymphocytes (%) (Auto) 21.2 10.0-50.0 % Monocytes (%) (Auto) 7.9 0.0-12.0 % Eosinophils (%) (Auto) 1.8 0.0-7.0 % Basophils (%) (Auto) 0.4 0.0-2.0 % Neutrophils # (Auto) 5.3 1.6-8.6 10 ^3/uL Lymphocytes # (Auto) 1.6 0.4-5.4 10 ^3/uL Monocytes # (Auto) 0.6 0-1.3 10 ^3/uL Eosinophils # (Auto) 0.1 0-0.8 10 ^3/uL Basophils # (Auto) 0 0-0.2 10 ^3/uL Nucleated Red Blood Cells 0.0 % Sodium Level 139 136-145 mmol/L Potassium Level 4.0 3.5-5.1 mmol/L Chloride Level 104 98-107 mmol/L Carbon Dioxide Level 31 20-31 mmol/L Anion Gap 4 L 5-15 Blood Urea Nitrogen 11 9-23 mg/dL Creatinine 0.86 0.550-1.02 mg/dL Glomerular Filtration Rate Calc 69 >90 mL/min BUN/Creatinine Ratio 12.8 10.0-20.0 Serum Glucose 138 H 74-106 mg/dL Calcium Level 10.2 8.7-10.4 mg/dL Total Bilirubin 0.2 0.2-1.0 mg/dL Aspartate Amino Transferase (AST) 14 13-40 U/L Alanine Aminotransferase (ALT) 12 7-40 U/L Alkaline Phosphatase 78 46-116 U/L Troponin I High Sensitivity 3 L </=34 ng/L Total Protein 6.1 5.7-8.2 g/dL Albumin 4.1 3.2-4.8 g/dL X-Ray, Labs, Meds, VS Comment All studies performed the ED today were evaluated by me personally. Labor atories were unremarkable for any systemic concerns. CT of the head showed no evidence of acute intracranial abnormality. Spent time discussing the patient's concerns with her. Advised that I would like her to get followed up by a career center advisor for possible autoimmune concerns as the patient has no history nor displays any signs of essential tremor or parkinsonian concerns. Time of 1ST Reevaluation: 19:32 Reevaluation 1ST: Unchanged Consultation: PCP, Other (Rheumatology) Patient Education/Counseling: Diagnosis, Treatment, Prognosis Family Education/Counseling: Diagnosis, Treatment, No Family Present Departure 1 Departure Time of Disposition: 19:33 Impression: Primary Impression: Headache Disposition: 01 HOME / SELF CARE / HOMELESS Condition: Stable Additional Instructions: Advised patient utilize Tylenol and or Motrin for headache concerns. Additionally, I would like patient to follow up with her primary care provider for possible rheumatology referral and evaluation as she may have an autoimmune concern. Possible neurologic evaluation as well. Discharged With: Self, Friend Critical Care Note Critical Care Time?: No Stability Stability form required: No I personally scribed for KATY MARCUM PAC ([email or web address]) on 09/02/24 at 16:55. Electronically submitted by Mikaela Willingham ([facility]). KATY MARCUM PAC Sep 02, 2024 16:55
[2024-09-02 20:08] VITALS: BP 163/86; PULSE 68; RESP 20; TEMP 97.7; O2SAT 97
== END 2024-09-02 20:17 | disposition home or self-care (01) ==
LOC: ER 14:20
DX: R51.9 Headache, unspecified (principal); J45.909 Unspecified asthma, uncomplicated; E11.9 Type 2 diabetes mellitus without complications
CPT/HCPCS: 36415; 70450; 80053; 84484; 85025

== ENCOUNTER 2024-09-21 06:38 | Emergency (ER) | payer BC ==
[~2024-09-21] VITALS: Ht 172.7 cm; Wt 79.8 kg
--- NOTE | 2024-09-21 07:42 | ED.PDOC ---
GI ASSESSMENT HPI Comments 78 year old female presents to the ED with chief complaint of abdominal pain and constipation. Patient reports that she has been experiencing chronic constipation for the past year, but it has worsened over time and she is only able to make small, pebble-like stools. Patient relays that she has associated abdominal pain due to her constipation. Patient states her next PCP appointment is on 09/28. Patient notes she was recently treated for a UTI in July. Patient denies any N/V/D, fever, chills, melena, or dysuria. Chief Complaint: Abdominal Pain Time Seen by MD: 07:38 Primary Care Provider: CHIQUITA Reviewed Notes: Nurses Notes, Medications, Allergies Allergies: Coded Allergies: Statins (Verified Allergy, Mild, itching, 04/07/23) Sulfa Antibiotics (Verified Allergy, Unknown, 02/13/23) Trimethoprim (Unverified Allergy, Unknown, 04/09/23) Home Meds Active Scripts Sulfamethoxazole W/Trimethopri (Bactrim Ds Tablet) 1 Tab Tb, 1 TAB PO BID for 7 Days, #14 TAB Prov:RUPERT LAMAS MD 08/30/24 Reported Medications Amlodipine Besylate (Amlodipine Besylate) 10 Mg Tab, 10 MG PO DAILY, TAB 09/25/23 Ramipril (Altace) 10 Mg Cp, 10 MG PO BID, CAP 09/25/23 Donepezil Hydrochloride (DONEPEZIL HCL) 10 Mg Tab, 10 MG PO QPM, TAB 09/25/23 Venlafaxine Hcl (Venlafaxine Hcl Er) 150 Mg Tab, 1 TAB PO DAILY for depression 04/07/23 Trazodone Hcl (Trazodone Hcl) 50 Mg Tab, 50 MG PO HSPRN PRN for SLEEP, MG 04/07/23 Pregabalin (Pregabalin) 75 Mg Cap, 75 MG PO BID for NEUROPATHY, CAP 04/07/23 Nitroglycerin (Nitrostat) 0.4 Mg Sub, 0.4 MG SL PRN for CHEST PAIN, INJ 04/07/23 Metoprolol Succinate (Metoprolol Succinate Er) 100 Mg Tab, 100 MG PO DAILY for HEART/HTN, TAB 04/07/23 Methocarbamol (Methocarbamol) 750 Mg Tab, 750 MG PO BID PRN for BACK PAIN 04/07/23 Memantine Hydrochloride (Memantine HCl) 10 Mg Tab, 10 MG PO BID for MEMORY, TAB 04/07/23 Sitagliptin Phosphate (Januvia) 100 Mg Tab, 1 TAB PO DAILY for DM 04/07/23 Ezetimibe (Zetia) 10 Mg Tab, 1 TAB PO DAILY for CHOLESTEROL 04/07/23 Apixaban Base (ELIQUIS) 5 Mg Tab, 5 MG PO BID for BLOOD THINNER (A-FIB), TAB 04/07/23 Albuterol Sulfate (Albuterol Sulfate Hfa) 108 Mcg/Act Aer, 90 MCG IN Q6HP PRN for SHORTNESS OF BREATH, AER 04/07/23 Information Source: Patient Mode of Arrival: Ambulatory Timing: Months Duration: Intermittent Prehospital treatment: None Quality: Aching Vomitus: None Stool: Impaction Severity: Moderate Recent: None Recent Hx of: Constipation Pain Location: Diffuse Modifying Factors: Nothing Associated sign and symptoms: Constipation, Abdominal Pain Past Medical History PAST MEDICAL HISTORY: AFIB, Asthma, Dementia, DM, HTN Surgical History: Hysterectomy Surgical History (Other): Oophorectomy SEAT JOINER CHAINSTITCH History: Denies all SEAT JOINER CHAINSTITCH Hx Family History Family History: Reviewed,noncontributory to illness Social History Smoker: Non-Smoker Alcohol: Denies ETOH Use Drugs: Denies Drug Use Lives In: Home Constitutional: denies: chills, diaphoresis, fatigue, fever, malaise, sweats, weakness, others EENTM: denies: blurred vision, double vision, ear bleeding, ear discharge, ear drainage, ear pain, ear ringing, eye pain, eye redness, hearing loss, mouth pain, mouth swelling, nasal discharge, nose bleeding, nose congestion, nose pain, photophobia, tearing, throat pain, throat swelling, voice changes, others Respiratory: denies: cough, hemoptysis, orthopnea, SOB at rest, shortness of breath, SOB with excertion, stridor, wheezing, others Cardiovascular: denies: chest pain, dizzy spells, diaphoresis, Dyspnea on exertion, edema, irregular heart beat, left arm pain, lightheadedness, palpitations, PND, syncope, others Gastrointestinal: reports: abdominal pain, constipated; denies: abdomen distended, blood streaked bowels, diarrhea, dysphagia, difficulty swallowing, hematemesis, melena, nausea, poor appetite, poor fluid intake, rectal bleeding, rectal pain, vomiting, others Genitourinary: denies: abnormal vagina bleeding, burning, dyspareunia, dysuria, flank pain, frequency, hematuria, incontinence, pain, , vagina discharge, urgency, others Neurological: denies: dizziness, fainting, headache, left sided numbness, left sided weakness, numbness, paresthesia, pre-existing deficit, right sided numbness, right sided weakness, seizure, speech problems, tingling, tremors, weakness, others Musculoskeletal: denies: back pain, gout, joint pain, joint swelling, muscle pain, muscle stiffness, neck pain, others Integumetry: denies: bruises, change in color, change in hair/nails, dryness, laceration, lesions, lumps, rash, wounds, others Allergic/Immunocompromised: denies: Difficulty Healing, Frequent Infections, Hives, Itching, others Hematologic/Lymphatic: denies: anemia, blood clots, easy bleeding, easy bruising, swollen glands, others Endocrine: denies: excessive hunger, excessive sweating, excessive thirst, excessive urination, flushing, intolerance to cold, intolerance to heat, unexplained weight gain, unexplained weight loss, others Psychiatric: denies: anxiety, bipolar disorder, depression, hopeless, panic disorder, schizophrenia, sleepless, suicidal, others All Other Systems: Reviewed and Negative Physical Exam General Appearance: Moderate Distress, Normal HEENT: Normal ENT Inspection, PERRL/EOMI Neck: Full Range of Motion, Non-Tender, Normal, Normal Inspection Respiratory: Chest Non-Tender, Lungs Clear, No Accessory Muscle Use, No Respiratory Distress, Normal Breath Sounds Cardiovascular: No Edema, No JVD, No Murmur, No Gallop, Normal Peripheral Pulses, Regular Rate/Rhythm Breast Exam: Deferred Gastrointestinal: No Organomegaly, Non Tender, No Pulsatile Mass, Normal Bowel Sounds, Soft Genitalia: Deferred Pelvic: Deferred Rectal: Deferred Extremities: No calf tenderness, Normal capillary refill, Normal inspection, Normal range of motion, Non-tender, No pedal edema Musculoskeletal : Apperance: Normal Neurologic: Alert, 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 Was a procedure done?: No GI differential Dx Differential Diagnosis: Constipation, Diverticular disease, Esophagitis, Gastritis/PUD, Gastroenteritis X-Ray, Labs, Meds, VS Vital Signs Date Time Temp Pulse Resp B/P (MAP) Pulse Ox O2 Delivery O2 Flow Rate FiO2 09/21/24 08:34 91 16 98 Room Air* 0 21 09/21/24 08:30 97.4 91 18 142/80 (100) 98 97.4 09/21/24 06:50 98.0 90 18 142/72 (95) 97 Lab Test 09/21/24 08:00 09/21/24 07:37 Range/Units Urine Color Light-yellow Yellow Urine Clarity Clear Clear Urine pH 7.5 5.0-9.0 Urine Specific [place] 1.009 1.001-1.035 Urine Protein Negative Negative Urine Ketones Negative Negative Urine Blood Trace H Negative /uL Urine Nitrite Negative Negative Urine Bilirubin Negative Negative Urine Urobilinogen Normal Negative mg/dL Urine Leukocyte Esterase 1+ Negative /uL Urine RBC 3 0 - 4 /hpf Urine Microscopic WBC 4 0-5 /HPF Urine Squamous Epithelial Cells Few <5 /hpf Urine Bacteria Few H None Seen /hpf Urine Glucose Normal Normal mg/dL White Blood Count 8.0 4.4-10.8 10^3/uL Red Blood Count 4.71 4.0-5.20 10^6/uL Hemoglobin 13.4 12.2-16.2 g/dL Hematocrit 40.7 36.0-46.0 % Mean Corpuscular Volume 86.4 80.0-100.0 fL Mean Corpuscular Hemoglobin 28.4 28.0-32.0 pg Mean Corpuscular Hemoglobin Concent 32.8 32.0-36.0 g/dL Red Cell Distribution Width 14.9 H 11.8-14.3 % Platelet Count 187 140-450 10^3/uL Mean Platelet Volume 9.0 6.9-10.8 fL Neutrophils (%) (Auto) 70.8 37.0-80.0 % Lymphocytes (%) (Auto) 17.3 10.0-50.0 % Monocytes (%) (Auto) 9.7 0.0-12.0 % Eosinophils (%) (Auto) 1.8 0.0-7.0 % Basophils (%) (Auto) 0.4 0.0-2.0 % Neutrophils # (Auto) 5.7 1.6-8.6 10 ^3/uL Lymphocytes # (Auto) 1.4 0.4-5.4 10 ^3/uL Monocytes # (Auto) 0.8 0-1.3 10 ^3/uL Eosinophils # (Auto) 0.1 0-0.8 10 ^3/uL Basophils # (Auto) 0 0-0.2 10 ^3/uL Nucleated Red Blood Cells 0.0 % Sodium Level 138 136-145 mmol/L Potassium Level 3.9 3.5-5.1 mmol/L Chloride Level 103 98-107 mmol/L Carbon Dioxide Level 29 20-31 mmol/L Anion Gap 6 5-15 Blood Urea Nitrogen 11 9-23 mg/dL Creatinine 0.72 0.550-1.02 mg/dL Glomerular Filtration Rate Calc 85 >90 mL/min BUN/Creatinine Ratio 15.3 10.0-20.0 Serum Glucose 133 H 74-106 mg/dL Calcium Level 10.2 8.7-10.4 mg/dL Current Medications Medications (Trade) Dose Ordered Sig/Filiberto Route Start Time Stop Time Status Last Admin Docusate Sodium (Colace Capsule) 100 mg ONCE ONCE PO 09/21/24 08:00 09/21/24 08:01 DC 09/21/24 08:22 Patient alert. Complaining of constipation for a year. Vitals stable. Answering questions. Abdomen is soft nontender. No sign of any distress. Possibly taking pain medication. No acute process. Reviewed her previous visit. UA shows UTI. X-ray does show constipation. Was given prescription of Colace Macrobid antibiotic Explained to the patient. Was told to follow up with her primary care physician. Was told to come back if there is any problem. XR KUB: FINDINGS: No dilated small bowel loops are seen. There is gas and moderate stool in the colon. No significant calcifications. IMPRESSION: Nonspecific nonobstructive bowel gas pattern with moderate stool in the colon. Time of 1ST Reevaluation: 08:38 Reevaluation 1ST: Improved Patient Education/Counseling: Diagnosis, Treatment Family Education/Counseling: No Family Present Additional Information I reviewed the following notes from patient's past medical encounters: 09/02/24 for Headache The following tests were ordered, and results were reviewed by me: Abdomen KUB, CBC, BMP, UA Additional Information was gathered from interviewing the following independent historians: None I reviewed and agreed with the following test results read by other providers: Abdomen KUB I discussed treatment and results with medical personnel. Departure 1 Departure Time of Disposition: 07:53 Impression: Primary Impression: Slow transit constipation Additional Impression: Urinary tract infection Qualified Codes: N30.00 - Acute cystitis without hematuria Disposition: HOME / SELF CARE / HOMELESS Condition: Good e-Prescriptions Docusate Sodium (Colace) 100 Mg Cap 100 MG PO DAILY for 5 Days, #5 CAP Prov: SELENA LYONS MD 09/21/24 Nitrofurantoin Monohydrate Mac (Macrobid) 100 Mg Cap 100 MG PO BID for 5 Days, #10 CAP Prov: SELENA LYONS MD 09/21/24 Discharged With: Self Critical Care Note Critical Care Time?: No Stability Stability form required: No Heart Score Heart Score: Heart Score Response (Comments) Value History N/A 0 EKG N/A 0 Age N/A 0 Risk Factors N/A 0 Troponin N/A 0 Total 0 I personally scribed for SELENA LYONS MD ([email or web address]) on 09/21/24 at 07:42. Electronically submitted by Nathanael Coates ([email or web address]). I personally scribed for SELENA LYONS MD ([email or web address]) on 09/21/24 at 07:57. Electronically submitted by Nathanael Coates ([email or web address]). SELENA LYONS MD Sep 21, 2024 07:42
--- NOTE | 2024-09-21 07:55 | DVH ---
CLINICAL HISTORY: 78 years old, Female; constipation. TECHNIQUE: Single AP view of the abdomen was obtained. COMPARISON: None FINDINGS: No dilated small bowel loops are seen. There is gas and moderate stool in the colon. No s ignificant calcifications. IMPRESSION: Nonspecific nonobstructive bowel gas pattern with moderate stool in the colon.
[2024-09-21 07:58] LABS: Chloride 103 mmol/L (98-107); Potassium 3.9 mmol/L (3.5-5.1); Sodium 138 mmol/L (136-145)
[2024-09-21 07:59] LABS: Anion Gap 6 (5-15); Calcium 10.2 mg/dL (8.7-10.4); Carbon Dioxide 29 mmol/L (20-31)
[2024-09-21 08:04] LABS: BUN/Creatinine Ratio 15.3 (10.0-20.0); Blood Urea Nitrogen 11 mg/dL (9-23)
[2024-09-21 08:05] LABS: Basophils # (auto) 0 10 ^3/uL (0-0.2); Basophils % (auto) 0.4 % (0.0-2.0); Eosinophils # (auto) 0.1 10 ^3/uL (0-0.8); Eosinophils % (auto) 1.8 % (0.0-7.0); Hematocrit 40.7 % (36.0-46.0); Hemoglobin 13.4 g/dL (12.2-16.2); Lymphocytes # (auto) 1.4 10 ^3/uL (0.4-5.4); Lymphocytes % (auto) 17.3 % (10.0-50.0); Mean Corpuscular Hemoglobin 28.4 pg (28.0-32.0); Mean Corpuscular Hgb Conc. 32.8 g/dL (32.0-36.0); Mean Corpuscular Volume 86.4 fL (80.0-100.0); Monocytes # (auto) 0.8 10 ^3/uL (0-1.3); Monocytes % (auto) 9.7 % (0.0-12.0); Neutrophils # (auto) 5.7 10 ^3/uL (1.6-8.6); Neutrophils % (auto) 70.8 % (37.0-80.0); Platelet Count (auto) 187 10^3/uL (140-450); Red Blood Cells 4.71 10^6/uL (4.0-5.20); Red Cell Distribution Width 14.9 % (11.8-14.3)
[2024-09-21 08:06] LABS: Glucose 133 mg/dL (74-106)
[2024-09-21] MEDS: DOCUSATE SOD 100 MG CAP PO ONE (08:22)
[2024-09-21 08:30] VITALS: BP 142/80; TEMP 97.4
[2024-09-21 08:34] VITALS: PULSE 91; RESP 16; O2SAT 98
[2024-09-21 08:53] LABS: Urine Bacteria FEW /hpf (None Seen); Urine Blood TRACE /uL (Negative); Urine Clarity Clear (Clear); Urine Color Light-Yellow (Yellow); Urine Protein, UAD Negative (Negative); Urine Specific Gravity 1.009 (1.001-1.035); Urine Squamous Epithelial Cell FEW /hpf (<5); Urine Urobilinogen Normal (Negative); Urine WBC 4 /HPF (0-5); Urine pH 7.5 (5.0-9.0)
[2024-09-21] MEDS ORDERED: NITR-87 PO (09:06)
[2024-09-21] MEDS ORDERED: DOCU-94 PO (09:07)
== END 2024-09-21 09:14 | disposition home or self-care (01) ==
LOC: ER 06:38
DX: K59.01 Slow transit constipation (principal); N39.0 Urinary tract infection, site not specified; I10 Essential (primary) hypertension; E11.9 Type 2 diabetes mellitus without complications; F03.90 Unspecified dementia, unspecified severity, without behavioral disturbance, psychotic disturbance, mood disturbance, and anxiety; I48.91 Unspecified atrial fibrillation; J45.909 Unspecified asthma, uncomplicated; Z79.84 Long term (current) use of oral hypoglycemic drugs; Z79.899 Other long term (current) drug therapy; Z87.440 Personal history of urinary (tract) infections; Z90.710 Acquired absence of both cervix and uterus; Z90.721 Acquired absence of ovaries, unilateral; Z88.1 Allergy status to other antibiotic agents; Z88.2 Allergy status to sulfonamides; Z88.8 Allergy status to other drugs, medicaments and biological substances
CPT/HCPCS: 36415; 74018; 80048; 81001; 85025

== ENCOUNTER → 2024-09-29 | Outpatient (CLI) | payer BC ==
[~2024-09-29] MED LIST changes: +DOCU-94 PO; +NITR-87 PO
== END | disposition home or self-care (01) ==
LOC: LAB 11:25
PROVIDERS: ATTEND Internal Medicine
DX: N39.0 Urinary tract infection, site not specified (principal)
CPT/HCPCS: 87086

== ENCOUNTER → 2024-10-17 | Outpatient (CLI) | payer BC ==
[2024-10-17 11:49] LABS: Anion Gap 7 (5-15); Calcium 9.8 mg/dL (8.7-10.4); Carbon Dioxide 29 mmol/L (20-31); Chloride 99 mmol/L (98-107); Potassium 4.6 mmol/L (3.5-5.1)
[2024-10-17 11:55] LABS: BUN/Creatinine Ratio 21.5 (10.0-20.0); Blood Urea Nitrogen 14 mg/dL (9-23)
[2024-10-17 11:57] LABS: Glucose 116 mg/dL (74-106); Sodium 135 mmol/L (136-145)
== END | disposition home or self-care (01) ==
LOC: LAB 10:49
PROVIDERS: ATTEND Internal Medicine
DX: I73.9 Peripheral vascular disease, unspecified (principal); F03.A0 Unspecified dementia, mild, without behavioral disturbance, psychotic disturbance, mood disturbance, and anxiety
CPT/HCPCS: 36415; 80048

== ENCOUNTER → 2024-12-05 | Outpatient (CLI) | payer BC | END | disposition home or self-care (01) | LOC: LAB 06:31 | DX: N39.0 Urinary tract infection, site not specified (principal) | CPT/HCPCS: 87086 ==

== ENCOUNTER → 2024-12-28 | Outpatient (CLI) | payer BC ==
[2024-12-28 07:05] LABS: Urine Blood Negative /uL (Negative); Urine Clarity Clear (Clear); Urine Color Yellow (Yellow); Urine Protein, UAD Negative (Negative); Urine Specific Gravity 1.019 (1.001-1.035); Urine Urobilinogen Normal (Negative); Urine pH 6.5 (5.0-9.0)
== END | disposition home or self-care (01) ==
LOC: LAB 06:39
PROVIDERS: ATTEND Internal Medicine
DX: N39.0 Urinary tract infection, site not specified (principal)
CPT/HCPCS: 81003; 87086

== ENCOUNTER 2025-01-31 06:29 | Outpatient (CLI) | payer BC ==
[2025-01-31 07:15] LABS: Triglycerides 79 mg/dL (< 150)
[2025-01-31 07:16] LABS: LDL Cholesterol 89 mg/dL (< 100)
[2025-01-31 07:17] LABS: Cholesterol 155 mg/dL (< 200); HDL Cholesterol 57 mg/dL (40-59)
[2025-01-31 17:05] LABS: Creatinine, Urine 32.39 mg/dL (30.0-125.0)
== END 2025-01-31 17:00 | disposition home or self-care (01) ==
LOC: LAB 06:29
PROVIDERS: ATTEND Internal Medicine
DX: E78.5 Hyperlipidemia, unspecified (principal); R73.03 Prediabetes
CPT/HCPCS: 36415; 80061; 82043; 82570; 83036

== ENCOUNTER → 2025-02-03 | Outpatient (CLI) | payer BC | END | disposition home or self-care (01) | LOC: LAB 06:20 | PROVIDERS: ATTEND Internal Medicine | DX: N39.0 Urinary tract infection, site not specified (principal) | CPT/HCPCS: 87086 ==

== ENCOUNTER 2025-05-02 09:22 | Outpatient (CLI) | payer BC | END 2025-05-02 17:00 | disposition home or self-care (01) | LOC: LAB 09:22 | PROVIDERS: ATTEND Internal Medicine | DX: E11.9 Type 2 diabetes mellitus without complications (principal) | CPT/HCPCS: 36415; 83036 ==

== ENCOUNTER 2025-05-19 10:27 | Day surgery (SDC) | payer BC ==
[2025-05-15 15:20] LABS: Hematocrit 40.6 % (36.0-46.0); Hemoglobin 13.8 g/dL (12.2-16.2); Mean Corpuscular Hemoglobin 30.1 pg (28.0-32.0); Mean Corpuscular Volume 88.6 fL (80.0-100.0); Nucleated Red Blood Cells % 0.0 %
[2025-05-15 15:24] LABS: Urine Protein, UAD Negative (Negative)
[2025-05-15 15:41] LABS: INR 1.0 (0.9-1.15); Partial Thromboplastin Time 26.9 SEC (24.5-34.5); Prothrombin Time 10.6 sec (9.3-11.8)
[2025-05-15 15:44] LABS: Alanine Aminotransferase 13 U/L (7-40); Albumin 4.3 g/dL (3.2-4.8); Alkaline Phosphatase 85 U/L (46-116); Anion Gap 8 (5-15); BUN/Creatinine Ratio 19.0 (10.0-20.0); Bilirubin, Total 0.4 mg/dL (0.2-1.0); Blood Urea Nitrogen 15 mg/dL (9-23); Calcium 9.1 mg/dL (8.7-10.4); Carbon Dioxide 30 mmol/L (20-31); Chloride 104 mmol/L (98-107); Potassium 3.7 mmol/L (3.5-5.1); Sodium 142 mmol/L (136-145); Total Protein 6.8 g/dL (5.7-8.2)
[2025-05-15 15:50] LABS: Glucose 135 mg/dL (74-106)
[~2025-05-19] VITALS: Ht 170.2 cm; Wt 75.7 kg
[~2025-05-19 10:27] MED LIST changes: -BACDST PO; +ESTR0.3T PO; +FURO20TA3 PO; +HYDR-4902 PO; -NITR-87 PO; +POLY335015 PO
[2025-05-19] MEDS ORDERED: PROPOFOL 10 MG/ML 20 ML IV ONE (11:20)
[2025-05-19] MEDS ORDERED: MIDAZOLAM HCL 2MG/2ML 2ml VIAL (1mg/ml) ONE (11:20)
[2025-05-19 11:57] VITALS: PULSE 75; RESP 12; O2SAT 100
--- NOTE | 2025-05-19 11:59 | DVHOP2 ---
Operative Report DATE OF OPERATION: 05/19/25 PROCEDURE: Diagnostic Colonoscopy. PREOPERATIVE INDICATION: The patient is a 79 -year-old female undergoing colonoscopy for colon cancer screening with blood in the stool POSTOPERATIVE DIAGNOSES: 1. Moderate sigmoid diverticular disease with sigmoid fixation 2. Trace internal hemorrhoids with superficial excoriation otherwise normal examination up to the cecum and terminal ileum PROCEDURE PERFORMED BY: Jefe Price M.D. SCOPE: Olympus videocolonoscope. ASA CLASS: 3. PREOPERATIVE MEDICATIONS: Dr. Eliseo Kirkpatrick PROCEDURE IN DETAIL: After obtaining an informed consent, the patient was placed on left lateral decubitus position. She was then sedated with the above medications. A rectal examination was performed that was normal. The colonoscope was then passed through the anus into the rectosigmoid and through the descending, transverse, and ascending colon up to the cecum with visualization of the appendiceal orifice, base of the cecum and the ileocecal valve. The colonoscope was then withdrawn. The distal 3-5 cm of the terminal ileum were normal No polyps or masses were seen. There was no colitis. Patient had moderate left colon diverticular disease most prominent in the sigmoid with sigmoid fixation and tortuosity On retroflexion and straight on view she had trace to 1+ internal hemorrhoids with superficial excoriation The patient tolerated the procedure well without difficulty. WITHDRAWAL TIME: 7 minutes QUALITY OF THE PREP: [place] Bowel Prep score: 9. COMPLICATIONS : None SPECIMENS: None DISPOSITION: Stable D/C to home PLAN: 1. Repeat colonoscopy in 10 years 2. Resume GI soft diet advance as tolerated 3. Increase fluid and fiber intake 4. DC aspirin NSAIDs smoking alcohol 5. Local anorectal hemorrhoidal care 6. Outpatient follow up with me in 4-6 weeks to review results and discuss further management JEFE PRICE MD May 19, 2025 11:59
[2025-05-19 12:07] VITALS: PULSE 74; RESP 13; O2SAT 99
[2025-05-19 12:47] VITALS: BP 149/58; PULSE 65; RESP 12; O2SAT 95
== END 2025-05-19 13:20 | disposition home or self-care (01) ==
LOC: GI 10:27
PROVIDERS: ATTEND Internal Medicine Gastroenterology
DX: K92.1 Melena (principal); K57.30 Diverticulosis of large intestine without perforation or abscess without bleeding; K64.0 First degree hemorrhoids; F17.200 Nicotine dependence, unspecified, uncomplicated; E11.9 Type 2 diabetes mellitus without complications; E78.5 Hyperlipidemia, unspecified; I10 Essential (primary) hypertension; J45.909 Unspecified asthma, uncomplicated; I48.91 Unspecified atrial fibrillation; Z79.899 Other long term (current) drug therapy; Z98.890 Other specified postprocedural states
CPT/HCPCS: 36415; 45378; 80053; 81001; 82962; 85025; 85610; 85730; J2250; J2704; J7030

== ENCOUNTER 2025-07-22 12:31 | Emergency (ER) | payer BC ==
[~2025-07-22] VITALS: Ht 162.6 cm; Wt 77.2 kg
[~2025-07-22 12:31] MED LIST changes: +FAMO20TA10 PO
[2025-07-22 12:51] VITALS: BP 137/81; PULSE 85; RESP 18; TEMP 98.5; O2SAT 98
== END 2025-07-22 16:42 | disposition left against medical advice (07) ==
LOC: EDBD 12:31 → ER 12:31
DX: R04.0 Epistaxis (principal)

== ENCOUNTER 2025-08-04 11:19 | Emergency (ER) | payer BC ==
[~2025-08-04] VITALS: Ht 172.7 cm; Wt 79.0 kg
--- NOTE | 2025-08-04 11:54 | ED.PDOC ---
Epistaxis- HPI HPI Comments This is a 79 year old female presenting to the ED with chief complaint of nose bleeding. Patient reports that she has been experiencing nasal bleeding this morning spontaneously, but it had resolved prior to coming into the ED. Patient relays that she has had previous episodes of nose bleeds. Patient states that she is currently on Eliquis, but her fiscal analyst Dr. Mcdaniels lowered her dose to 2.5mg instead of 5mg. Patient notes her caregiver advised her to come to the ED for a PTPTT. Patient denies any headache, dizziness, N/V, chest pain, or SOB. Chief Complaint: Nose Bleed Time Seen by MD: 11:51 Primary Care Provider: CHIQUITA Reviewed Notes: Nurses Notes, Medications, Allergies Allergies: Coded Allergies: Statins (Verified Allergy, Mild, itching, 04/07/23) Sulfa Antibiotics (Verified Allergy, Unknown, 02/13/23) Trimethoprim (Unverified Allergy, Unknown, 04/09/23) Uncoded Allergies: Z JOSE ANGEL (Allergy, Unknown, 08/04/25) Home Meds Active Scripts Famotidine (PEPCID TABLET) 20 Mg Tb, 1 TAB PO BID for 30 Days, #60 TAB 5 Refills Prov:HEDY MEJÍA 05/31/25 Docusate Sodium (Colace) 100 Mg Cap, 100 MG PO DAILY for 5 Days, #5 CAP Prov:SELENA LYONS MD 09/21/24 Reported Medications Polyethylene Glycol 3350 (Miralax) 17 Gm Pow, 17 GM PO, POW 05/15/25 Estrogens, Conjugated (PREMARIN TABLET) 0.3 Mg Tb, 0.3 MG PO, TAB 05/15/25 Hydrocodone-Acetaminophen (Hydrocodone Bitartrate/AC 5-325 mg) 1 Tab Tab, 1 TAB PO, TAB 05/15/25 Furosemide (Furosemide) 20 Mg Tab, 1 TAB PO DAILY for prn, #90 TAB 3 Refills 05/15/25 Amlodipine Besylate (Amlodipine Besylate) 10 Mg Tab, 10 MG PO DAILY, TAB 09/25/23 Ramipril (Altace) 10 Mg Cp, 10 MG PO BID, CAP 09/25/23 Donepezil Hydrochloride (DONEPEZIL HCL) 10 Mg Tab, 10 MG PO QPM, TAB 09/25/23 Venlafaxine Hcl (Venlafaxine Hcl Er) 150 Mg Tab, 1 TAB PO DAILY for depression 04/07/23 Trazodone Hcl (Trazodone Hcl) 50 Mg Tab, 50 MG PO HSPRN PRN for SLEEP, MG 04/07/23 Pregabalin (Pregabalin) 75 Mg Cap, 75 MG PO BID for NEUROPATHY, CAP 04/07/23 Nitroglycerin (Nitrostat) 0.4 Mg Sub, 0.4 MG SL PRN for CHEST PAIN, INJ 04/07/23 Metoprolol Succinate (Metoprolol Succinate Er) 100 Mg Tab, 100 MG PO DAILY for HEART/HTN, TAB 04/07/23 Methocarbamol (Methocarbamol) 750 Mg Tab, 750 MG PO BID PRN for BACK PAIN 04/07/23 Memantine Hydrochloride (Memantine HCl) 10 Mg Tab, 10 MG PO BID for MEMORY, TAB 04/07/23 Sitagliptin Phosphate (Januvia) 100 Mg Tab, 1 TAB PO DAILY for DM 04/07/23 Ezetimibe (Zetia) 10 Mg Tab, 1 TAB PO DAILY for CHOLESTEROL 04/07/23 Apixaban Base (ELIQUIS) 5 Mg Tab, 5 MG PO BID for BLOOD THINNER (A-FIB), TAB 04/07/23 Albuterol Sulfate (Albuterol Sulfate Hfa) 108 Mcg/Act Aer, 90 MCG IN Q6HP PRN for SHORTNESS OF BREATH, AER 04/07/23 Information Source: Patient Mode of Arrival: Ambulatory Severity: Streaking, Bleeding Controlled Timing: Hours Duration: Hours Prehospital treatment: None Location: Both narises Mechanism: Spontaneous onset Circumstances: Unknown Use of: Coumadin (Eliquis*) History of: Nasal bleeding Last Tetanus: Unknown Nose: Normal Bleeding Status: No active bleeding Bleeding Amount: None Source: Normal Past Medical History PAST MEDICAL HISTORY: AFIB, Asthma, Dementia, DM, HTN Surgical History: Hysterectomy NEGATIVE RETOUCHER History: Denies all NEGATIVE RETOUCHER Hx Family History Family History: Reviewed,noncontributory to illness Social History Smoker: Non-Smoker Alcohol: Denies ETOH Use Drugs: Denies Drug Use Lives In: Home Constitutional: denies: chills, diaphoresis, fatigue, fever, malaise, sweats, weakness, others EENTM: reports: nose bleeding; denies: blurred vision, double vision, ear bleeding, ear discharge, ear drainage, ear pain, ear ringing, eye pain, eye redness, hearing loss, mouth pain, mouth swelling, nasal discharge, nose congestion, nose pain, photophobia, tearing, throat pain, throat swelling, voice changes, others Respiratory: denies: cough, hemoptysis, orthopnea, SOB at rest, shortness of breath, SOB with excertion, stridor, wheezing, others Cardiovascular: denies: chest pain, dizzy spells, diaphoresis, Dyspnea on exertion, edema, irregular heart beat, left arm pain, lightheadedness, p alpitations, PND, syncope, others Gastrointestinal: denies: abdomen distended, abdominal pain, blood streaked bowels, constipated, diarrhea, dysphagia, difficulty swallowing, hematemesis, melena, nausea, poor appetite, poor fluid intake, rectal bleeding, rectal pain, vomiting, others Genitourinary: denies: abnormal vagina bleeding, burning, dyspareunia, dysuria, flank pain, frequency, hematuria, incontinence, pain, , vagina discharge, urgency, others Neurological: denies: dizziness, fainting, headache, left sided numbness, left sided weakness, numbness, paresthesia, pre-existing deficit, right sided numbness, right sided weakness, seizure, speech problems, tingling, tremors, weakness, others Musculoskeletal: denies: back pain, gout, joint pain, joint swelling, muscle pain, muscle stiffness, neck pain, others Integumetry: denies: bruises, change in color, change in hair/nails, dryness, laceration, lesions, lumps, rash, wounds, others Allergic/Immunocompromised: denies: Difficulty Healing, Frequent Infections, Hives, Itching, others Hematologic/Lymphatic: denies: anemia, blood clots, easy bleeding, easy bruising, swollen glands, others Endocrine: denies: excessive hunger, excessive sweating, excessive thirst, excessive urination, flushing, intolerance to cold, intolerance to heat, unexplained weight gain, unexplained weight loss, others Psychiatric: denies: anxiety, bipolar disorder, depression, hopeless, panic disorder, schizophrenia, sleepless, suicidal, others All Other Systems: Reviewed and Negative Physical Exam General Appearance: No Apparent Distress, Normal HEENT: Normal ENT Inspection, Pharynx Normal, TMs Normal Neck: Full Range of Motion, Non-Tender, Normal, Normal Inspection Respiratory: Chest Non-Tender, Lungs Clear, No Accessory Muscle Use, No Respiratory Distress, Normal Breath Sounds Cardiovascular: No Edema, No JVD, No Murmur, No Gallop, Normal Peripheral Pulses, Regular Rate/Rhythm Breast Exam: Deferred Gastrointestinal: No Organomegaly, Non Tender, No Pulsatile Mass, Normal Bowel Sounds, Soft Genitalia: Deferred Pelvic: Deferred Rectal: Deferred Extremities: No calf tenderness, Normal capillary refill, Normal inspection, Normal range of motion, Non-tender, No pedal edema Musculoskeletal : Apperance: Normal Neurologic: Alert, 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 Was a procedure done?: No Differential Diagnosis (NSB) Differential Diagnosis: Anterior Nasal Bleed, Posterior Nasal Bleed, Coagulopathy X-Ray, Labs, Meds, VS Vital Signs Date Time Temp Pulse Resp B/P (MAP) Pulse Ox O2 Delivery O2 Flow Rate FiO2 08/04/25 13:39 97.8 68 14 135/77 (96) 98 97.8 08/04/25 11:22 97.6 74 18 134/66 95 97.6 Lab Test 08/04/25 11:53 Range/Units Prothrombin Time 10.3 9.3-11.8 sec Prothrombin Time INR 0.97 0.9-1.15 Activated Partial Thromboplast Time 28.6 24.5-34.5 SEC Time of 1ST Reevaluation: 12:15 Reevaluation 1ST: Resolved Patient Education/Counseling: Diagnosis, Treatment Family Education/Counseling: No Family Present Departure 1 Departure Time of Disposition: 14:40 (Patient's nosebleed already resolved.) Impression: Primary Impression: Epistaxis Disposition: HOME / SELF CARE / HOMELESS Condition: Stable Additional Instructions: Your blood work was benign today. You can use Afrin while you are having a nosebleed to help stop your nosebleed. Discharged With: Self Critical Care Note Critical Care Time?: No Stability Stability form required: No Heart Score Heart Score: Heart Score Response (Comments) Value History N/A 0 EKG N/A 0 Age N/A 0 Risk Factors N/A 0 Troponin N/A 0 Total 0 I personally scribed for BRUNO MARTINEZ MD ([email or web address]) on 08/04/25 at 11:54. Electronically submitted by Nathanael Coates ([email or web address]). BRUNO MARTINEZ MD Aug 04, 2025 11:54
[2025-08-04 12:27] LABS: INR 0.97 (0.9-1.15); Partial Thromboplastin Time 28.6 SEC (24.5-34.5); Prothrombin Time 10.3 sec (9.3-11.8)
[2025-08-04 15:35] VITALS: BP 146/84; PULSE 76; RESP 18; TEMP 98.4; O2SAT 97
== END 2025-08-04 15:36 | disposition home or self-care (01) ==
LOC: ER 11:19
DX: R04.0 Epistaxis (principal); I48.91 Unspecified atrial fibrillation; I10 Essential (primary) hypertension; F03.90 Unspecified dementia, unspecified severity, without behavioral disturbance, psychotic disturbance, mood disturbance, and anxiety; E11.9 Type 2 diabetes mellitus without complications; J45.909 Unspecified asthma, uncomplicated; Z79.899 Other long term (current) drug therapy; Z90.710 Acquired absence of both cervix and uterus; Z88.8 Allergy status to other drugs, medicaments and biological substances; Z79.84 Long term (current) use of oral hypoglycemic drugs; Z88.1 Allergy status to other antibiotic agents; Z79.01 Long term (current) use of anticoagulants; Z88.2 Allergy status to sulfonamides
CPT/HCPCS: 36415; 85610; 85730